=== PATIENT | female | born 1955 | race Caucasian/White ===

== ENCOUNTER 2020-06-14 06:02 | Day surgery (SDC) | payer OTHER ==
[2020-06-12 10:42] VITALS: BMI 41.1
[2020-06-14] MEDS ORDERED: MIDAZOLAM 2 MG/2 ML VIAL IV PRN (06:06)
[2020-06-14] MEDS ORDERED: SCOPOLAMINE 1.5MG/72HR PATCH TRANSDERM ONE (06:06)
[2020-06-14] MEDS ORDERED: LACTATED RINGERS 1,000 ML IV SCH (06:06)
[2020-06-14] MEDS ORDERED: DEXAMETHASONE SOD PHOSPHATE 4 MG/ML 1 ML VIAL IV ONE (06:06)
[2020-06-14] MEDS ORDERED: ONDANSETRON 4 MG/2 ML VIAL IVP ONE (06:06)
[2020-06-14] MEDS ORDERED: LIDOCAINE 1% (10MG/ML) FOR IV START INTRADERMA ONE (06:44)
[2020-06-14] MEDS ORDERED: MIDAZOLAM 2 MG/2 ML VIAL IV ONE (07:01)
[2020-06-14] MEDS ORDERED: fentaNYL (PF) 50 MCG/ML 2 ML AMP IV ONE (07:01)
[2020-06-14] MEDS ORDERED: SUCCINYLCHOLINE CHLORIDE 100 MG/5 ML SYR IV ONE (07:25)
[2020-06-14] MEDS ORDERED: LIDOCAINE 1% INJ 10MG/ML (20 ML MDV) ONE (07:25)
[2020-06-14] MEDS ORDERED: PROPOFOL 10 MG/ML 20 ML VIAL IV ONE (07:25)
[2020-06-14] MEDS ORDERED: PHENYLEPHRINE-0.9% NACL SYG 1,000 MCG/10 ML SYRINGE ONE (07:25)
[2020-06-14] MEDS ORDERED: fentaNYL (PF) 50 MCG/ML 2 ML AMP ONE (07:25)
[2020-06-14] MEDS ORDERED: ROPIVACAINE 5 MG/ML 30 ML VIAL ONE (07:25)
[2020-06-14] MEDS ORDERED: DEXAMETHASONE SOD PHOSPHATE 4 MG/ML 1 ML VIAL ONE (07:25)
[2020-06-14] MEDS ORDERED: ceFAZolin 1,000 MG in SODIUM CHLORIDE 0.9% 1,000 ML IRRIGATION ONE (07:50)
--- NOTE | 2020-06-14 08:06 | P.ANPRN ---
Procedure Note - Anesthesia - Nerve Block Performed Left Popliteal Single Time Out Performed: Yes Date of Procedure: 06/14/20 Procedure Start Time: 07:01 Procedure Stop Time: 07:10 Location of Patient: PreOp Indication: Requested by Surgeon Specifically requested for management of pain by DrBhanu: Tio Gustafson Sedation Type: Sedate with meaningful contact maintained Preparation: Sterile Prep Position: Right Lateral Needle Types: Pajunk Needle Gauge: 21 Ultrasound used to visualize needle placement: Yes Ultrasound used to observe medication spread: Yes Injectate: 0.5% Ropivacaine (see comment for volume) (20 ml plus DExamethasone 4 mg) Blood Aspirated: No Pain Paresthesia on Injection Noted: No Resistance on Injection: Normal Image Stored and Saved: Yes Events: Uneventful and Well Tolerated
--- NOTE | 2020-06-14 08:07 | P.ANPRN ---
Procedure Note - Anesthesia - Nerve Block Performed Left Adductor Canal Single Time Out Performed: Yes Date of Procedure: 06/14/20 Procedure Start Time: :11 Procedure Stop Time: :23 Location of Patient: PreOp Indication: Acute Post-Operative Pain, Requested by Surgeon Specifically requested for management of pain by DrBhanu: Tio Gustafson Sedation Type: Sedate with meaningful contact maintained Preparation: Sterile Prep Position: Supine Needle Types: Pajunk Needle Gauge: 21 Ultrasound used to visualize needle placement: Yes Ultrasound used to observe medication spread: Yes Injectate: 0.5% Ropivacaine (see comment for volume) (20 ml plus Dexamethasone 4 mg) Blood Aspirated: No Pain Paresthesia on Injection Noted: No Resistance on Injection: Normal Image Stored and Saved: Yes Events: Uneventful and Well Tolerated
[2020-06-14] MEDS ORDERED: LACTATED RINGERS 1,000 ML IV ONE (08:47)
[2020-06-14 09:12] VITALS: TEMP 97.4
[2020-06-14] MEDS: HYDROmorphone 0.5 MG/0.5 ML SYRINGE IVP PRN ×3 (09:27→09:39)
[2020-06-14 09:34] VITALS: RESP 16
--- NOTE | 2020-06-14 09:35 | P.OP ---
Date of Procedure: 06/14/20 Preoperative Diagnosis: 1. Left ankle instability 2. Ruptured peroneus brevis tendon left ankle Postoperative Diagnosis: 1. Same 2. Same Procedure(s) Performed: 1. Secondary repair of left lateral ankle ligaments 2. Open repair flexor tendon left ankle ( peroneus brevis) Implants: 1 Arthrex internal brace, 2 Arthrex fiber Anthony anchors Anesthesia: GETA Surgeon: iTo Gustafson Estimated Blood Loss (ml): 2 Pathology: none sent Condition: stable Disposition: PACU Operative Findings: Split longitudinal tear with fraying of the peroneus brevis tendon Description of Procedure: Prior to the patient being brought to the operating room anesthesia administered a popliteal and saphenous nerve block, under ultrasonic guidance and mild sedation. The patient was then brought into the operating room and placed on table supine position. Timeout was taken to confirm correct patient identifiers correct site of surgery and correct procedure. When everybody in the room was in agreement the patient was placed under general anesthetic. A well-padded tourniquet was placed on the left midcalf area and a wedge placed underneath the left hip to internally rotate the left leg. The left leg was then prepped and draped in usual manner. The leg was exsanguinated and the tourniquet inflated to 250 mmHg. Attention directed over the lateral ankle where a incision was made along the lateral malleolus and curved anteriorly as it went into the hindfoot. It was deepened down to the subcutaneous tissue careful to identify, avoid, and retract any neurovascular structures and cauterize any bleeding vessels. Subcutaneous dissection was continued posteriorly and anteriorly to expose the 2 surgical sites. Attention was first directed to the peroneal tendons where instrumentation was used to make a hole in the peroneal tendon sheath and then blunt retraction was placed deep to the fascia so that it could be incised while protecting underlying tendons. The peroneal tendon sheath was opened until all pathologic tendon was visualized. The peroneus brevis was delivered into the surgical field and visually inspected. There is a split longitudinal tear with fraying of the tendon. There is also an enlargement distally in the hindfoot area where likely tear occurred with mild retraction. All abnormal and pathologic tendon tissue was sharply removed until it was debulked and there was normal tendon tissue available. Then utilizing 2-0 nonabsorbable suture, the tendon was re-tubularized keeping as much suture buried between the ends of the tendon as possible. Once the tendon was repaired it was placed back into the fibular groove along with the Proteus longus. The ankle was taken through range of motion and the tendons both glided through the area smoothly. The wound is irrigated with antibiotic saline. The peroneal tendon sheath and fascia was repaired with 2-0 nonabsorbable suture. Then attention was directed over the anterior aspect of the surgical site were in incision was made through the capsular and ligamentous structures on the anterior lateral ankle off the anterior surface of the lateral malleolus. The soft tissues reflected posteriorly and anteriorly to expose the anterior surface of the lateral malleolus where a Campus Chaplain was used to remove the cortical bone which would facilitate ligament re-adhesion upon healing. Then the area distal to the articular surface of the talus on the lateral aspect was palpated to the capsule while holding the ankle at 90. Once the correct area the body of the talus was identified a small stab incision was made to the capsule and then the drill hole for the 4.75 swivel lock anchor was made and tapped. The swivel lock anchor was inserted and advanced to proper depth. The meatman was removed and the suture set aside. The same drill was used to create the drill hole for the second anchor of the internal brace in the lateral malleolus. Then the steamboat pilot holes for the fiber Bobby anchors were made one inferior one superior to the drill hole the lateral malleolus. Anchors were inserted and impacted to proper depth the inserters were removed and then tension placed on the sutures to lock the knot in the bone in place. The wound is irrigated with antibiotic saline. Then utilizing the suture on the fiber Bobby anchors distal capsular ligamentous structures were captured in the suture and then while holding the ankle maximally dorsiflexed and everted the sutures are tied to bring the soft tissue back to the anterior surface the lateral malleolus once that was completed the suture on the 4.75 swivel lock anchor was fed into the 3.5 mm anchor that was alignment of the drill hole the lateral malleolus and then utilizing proper tensioning techniques the anchor was inserted into the drill hole and advanced to proper depth. A of the suture that remained from the fiber Bobby anchors was then used to sew the soft tissue periosteal flap off the lateral malleolus over the repair site in a pants over vest fashion. That point ankle was checked for stability were anterior drawer and inversion stress are negative. The wound is irrigated with antibiotic saline. Subcu closure was then done with 4-0 Monocryl skin closure done with 40 stratified effects in a running subcuticular manner. Dermabond glue was applied until dry then Steri-Strips and Arthrex jumpstart dressing were placed over the incision. The tourniquet was deflated and all capillary refill return to the digits on the left foot Patient then placed a well-padded well molded posterior mold sugar tong plaster splint. Splint was held in place with ankle 90 until dried. Anesthesia was reversed and the patient taken recovery with vital signs stable
[2020-06-14] MEDS ORDERED: HYDROcodone/APAP 5-325MG 1 EACH TAB ONE (10:37)
[2020-06-14] MEDS ORDERED: HYDROcodone/APAP 5-325MG 1 EACH TAB PO ONE (10:38)
[2020-06-14 10:56] VITALS: BP 111/72; PULSE 92
== END 2020-06-14 11:21 | disposition home or self-care (01) ==
LOC: OR 06:02
PROVIDERS: ATTEND Podiatrist
DX: S86.312A Strain of muscle(s) and tendon(s) of peroneal muscle group at lower leg level, left leg, initial encounter (principal); X50.1XXA Overexertion from prolonged static or awkward postures, initial encounter; M25.372 Other instability, left ankle; I10 Essential (primary) hypertension; K21.9 Gastro-esophageal reflux disease without esophagitis; Z86.16 Personal history of COVID-19; Z85.41 Personal history of malignant neoplasm of cervix uteri; Z97.3 Presence of spectacles and contact lenses; Z98.890 Other specified postprocedural states; Z90.710 Acquired absence of both cervix and uterus; Z79.1 Long term (current) use of non-steroidal anti-inflammatories (NSAID); Z79.899 Other long term (current) drug therapy; Z79.82 Long term (current) use of aspirin
CPT/HCPCS: 64447; 64450; 76942; 27675; 27698; C1713 ×2; J2250; J1100; J0690 ×2; J2405; J2001; J3010; J2795; J2370; J0330; J2704; J1170

== ENCOUNTER 2021-01-08 11:20 | Day surgery (SDC) | payer OTHER ==
[2021-01-06 13:35] VITALS: BMI 41.6
[~2021-01-08 11:20] MED LIST: LACTATED RINGERS 1,000 ML IV SCH; LIDOCAINE 1% (10MG/ML) FOR IV START INTRADERMA PRN; Pre Op ABX Message 1 EACH MISC MISCELLANE ONE
[2021-01-08] MEDS ORDERED: ONDANSETRON 4 MG/2 ML VIAL ONE (12:03)
[2021-01-08] MEDS ORDERED: ONDANSETRON 4 MG/2 ML VIAL IVP ONE (12:09)
[2021-01-08] MEDS ORDERED: DEXAMETHASONE SOD PHOSPHATE 4 MG/ML 1 ML VIAL IV ONE (12:09)
[2021-01-08] MEDS ORDERED: MIDAZOLAM 2 MG/2 ML VIAL IV ONE (12:30)
[2021-01-08] MEDS ORDERED: fentaNYL (PF) 50 MCG/ML 2 ML AMP IV ONE (12:30)
[2021-01-08] MEDS ORDERED: ceFAZolin 3 GM in SODIUM CHLORIDE 0.9% 100 ML IVPB ONE (13:00)
[2021-01-08] MEDS ORDERED: fentaNYL (PF) 50 MCG/ML 2 ML AMP ONE (13:00)
[2021-01-08] MEDS ORDERED: PROPOFOL 10 MG/ML 20 ML VIAL IV ONE (13:00)
[2021-01-08] MEDS ORDERED: SUCCINYLCHOLINE CHLORIDE 100 MG/5 ML SYR IV ONE (13:00)
[2021-01-08] MEDS ORDERED: LIDOCAINE 1% INJ 10MG/ML (20 ML MDV) ONE (13:00)
[2021-01-08] MEDS ORDERED: PHENYLEPHRINE-0.9% NACL SYG 1,000 MCG/10 ML SYRINGE ONE (13:00)
[2021-01-08] MEDS ORDERED: ROPIVACAINE 5 MG/ML 30 ML VIAL ONE (13:00)
[2021-01-08 14:30] VITALS: TEMP 97.1
--- NOTE | 2021-01-08 14:34 | P.ANPRN ---
Procedure Note - Anesthesia - Nerve Block Performed Left Popliteal Single Time Out Performed: Yes ([id number]) Date of Procedure: 01/08/21 Procedure Start Time: 12:30 Procedure Stop Time: 12:35 Location of Patient: PreOp Indication: Acute Post-Operative Pain, Requested by Surgeon Specifically requested for management of pain by DrBhanu: Tio Gustafson Sedation Type: Sedate with meaningful contact maintained Preparation: Sterile Prep Position: Supine Catheter: None Needle Types: Pajunk Needle Gauge: 21 Ultrasound used to visualize needle placement: Yes Ultrasound used to observe medication spread: Yes Injectate: 0.5% Ropivacaine (see comment for volume) (20cc) Blood Aspirated: No Pain Paresthesia on Injection Noted: No Resistance on Injection: Normal Image Stored and Saved: Yes Events: Uneventful and Well Tolerated Left Adductor Canal Single Time Out Performed: Yes ([id number]) Date of Procedure: 01/08/21 Procedure Start Time: 12:36 Procedure Stop Time: 12:41 Location of Patient: PreOp Indication: Acute Post-Operative Pain, Requested by Surgeon Specifically requested for management of pain by DrBhanu: Tio Gustafson Sedation Type: Sedate with meaningful contact maintained Preparation: Sterile Prep Position: Supine Catheter: None Needle Types: Pajunk Needle Gauge: 21 Ultrasound used to visualize needle placement: Yes Ultrasound used to observe medication spread: Yes Injectate: 0.5% Ropivacaine (see comment for volume) (20cc) Blood Aspirated: No Pain Paresthesia on Injection Noted: No Resistance on Injection: Normal Image Stored and Saved: Yes Events: Uneventful and Well Tolerated
[2021-01-08] MEDS ORDERED: HYDROcodone/APAP 5-325MG 1 EACH TAB PO STA (14:46)
[2021-01-08] MEDS ORDERED: IV FLUID CONTINUATION 1,000 ML IV ONE (15:07)
[2021-01-08 15:15] VITALS: PULSE 91; RESP 18
[2021-01-08] MEDS ORDERED: HYDROcodone/APAP 5-325MG 1 EACH TAB PO ONE (15:20)
[2021-01-08 16:04] VITALS: BP 111/72
--- NOTE | 2021-01-09 12:53 | P.OP ---
Date of Procedure: 01/08/21 Preoperative Diagnosis: Rupture of peroneal tendon left ankle Postoperative Diagnosis: Same Procedure(s) Performed: Secondary repair left peroneal tendons x 2 Anesthesia: MAKENNA Surgeon: Tio Gustafson Estimated Blood Loss (ml): 3 Pathology: none sent Condition: stable Disposition: PACU Indications for Procedure: Continued pain following previous repair of tendon. MRI indicated pathology in the peroneal tendons Operative Findings: Partial tear of the peroneus longus with marked thickening. Thinning of peroneus brevis Description of Procedure: Prior to the patient being brought to the OR, anesthesia performed a nerve block on the left leg under ultrasound guidance and with the patient under mild sedation. The patient was then brought into the OR and placed on the table in the supine position. Time out was taken to confirm correct patient identifiers, correct procedure and correct side of surgery. When the staff in the room was in agreement with the timeout, the patient was induced and placed under general anesthesia. A well padded tourniquet was applied to the left calf, staying 3-4in distal to the fibular neck. A bump was placed under the left hip to internally rotate the left leg, and then the left leg was prepped and draped in the usual manner. The leg was exanguinated and the tourniquet inflated to 250mmHg. Attention was directed Attention was directed to the lateral ankle, where the previous incision was used for access. The incision was deepened to the subcutaneous tissue, careful to identify, avoid and retract any neurovascular structures and cauterize any bleeding vessels. Direction was carried down to the peroneal retinaculum. The retinaculum was incised off of the posterior aspect of the fibula to expose the peroneal tendons. On inspection the peroneus longus appeared to have a new interstitial tear with thickening of the tendon body and mild retraction of the fibers where some healing had occurred, thus the thickening of the tendon. The brevis tendon was also thinned in the same area. Sharp debridement of both tendons was performed to remove abnormal tissue. Once completed, it was decided to perform a side to side anastomosis of the tendons due to the diminished amount of tissue in each. A 3-0 fiberwire was used to perform the anastomosis. Once completed, the tendons were placed back into the peroneal groove. The hindfoot and ankle were taken through ROM and the tendons were noted to glide smoothly through the area. The area was thoroughly irrigated. Suture tape was then utilized to repair the retinaculum. The SubQ was closed with 4-0 monocryl. The skin was closed with sta ples. An Arthrex jumpstart dressing was placed over the incision. Then a dry, sterile dressing was applied to the ankle. The tourniquet was released and CFT returned to all digits on the left foot. The patient was then placed in a well molded. well padded, posterior mold/sugar tong splint. The ankle was held in neutral until the splint was firm. Then anesthesia was reversed. The patient was taken to recovery with vital signs stable.
== END 2021-01-08 16:05 | disposition home or self-care (01) ==
LOC: OR 11:20
PROVIDERS: ATTEND Podiatrist
DX: S86.312A Strain of muscle(s) and tendon(s) of peroneal muscle group at lower leg level, left leg, initial encounter (principal); I10 Essential (primary) hypertension; K21.9 Gastro-esophageal reflux disease without esophagitis
CPT/HCPCS: 28200; 64447; 64999; 76942; J2250; J1100; J0690; J2405; J2001; J3010; J2795; J2370; J0330; J2704

== ENCOUNTER → 2021-03-19 | Outpatient (CLI) | payer OTHER ==
--- NOTE | 2021-03-19 19:55 | CONS ---
CONSULTATION DATE OF SERVICE: 03/19/2021 This 66-year-old lady has been evaluated in Sleep Center for possible obstructive sleep apnea-hypopnea syndrome. HISTORY OF PRESENT ILLNESS/SLEEP-WAKE EVALUATION: Patient's usual sleep schedule is from 11 p.m. to 8 a.m. No problems with falling asleep. No TV in bedroom. She usually sleeps on the back and side positions. She snores loudly and has witnessed episodes of stopped breathing during sleep. She wakes up from sleep 2 times with dry mouth and nocturia. No history of hypnagogic hallucinations, sleep paralysis or cataplexy. [place] Sleepiness Scale is 7. Patient usually does not take any naps. PAST MEDICAL HISTORY: Positive for hypertension, acid reflux, cervical carcinoma. PAST SURGICAL HISTORY: Surgical treatment of cervical carcinoma, cholecystectomy, ankle surgery. MEDICATIONS: 1. Metoprolol 12.5 mg once a day. 2. Omeprazole 20 mg once a day. 3. Multivitamins. SOCIAL HISTORY: Negative for smoking. Alcohol consumption: None at the present time. REVIEW OF SYSTEMS: Loud snoring, multiple awakenings from sleep. No fevers. No double vision. No recent chest pain. No shortness of breath. No abdominal pain. No bleeding episodes. No blood in the urine. No seizure episodes. FAMILY HISTORY: Heart problems, diabetes. PHYSICAL EXAMINATION: GENERAL: Pleasant lady without distress. VITAL SIGNS: BP 132/82, HR 100, RR 18, height 5 feet 5-1/2 inches, weight 266 pounds, body mass index 43.5, temperature 96.6, oxygen saturation room air 95%. HEENT: PERRLA, EOMI, evaluation of oropharynx showed tongue protrudes midline. Extremely low position of soft palate; Mallampati IV. NECK: Supple, no JVD. Thyroid is not palpable. Neck is wide; 16-1/2 inches in circumference. LUNGS: Clear to percussion and to auscultation. Good air exchange. No wheezing or rhonchi. HEART: S1, S2 regular. No murmurs, gallops, or rubs. ABDOMEN: Slightly obese. EXTREMITIES: No clubbing or cyanosis. HEALTH INSURANCE AGENT: Awake, alert, and oriented X3. Cranial nerves 2 to 7 intact. There is no fasciculation or atrophy. noted. No focal deficits observed. IMPRESSION: 1. Loud snoring, witnessed episodes of stopped breathing during sleep, extremely low position of soft palate, Mallampati IV, wide neck, 16-1/2 inches in circumference; obstructive sleep apnea-hypopnea syndrome. 2. Obesity; body mass index 43.5. 3. Hypertension. 4. Acid reflux. 5. History of cervical carcinoma, status post surgical treatment. 6. Status post cholecystectomy. 7. Status post ankle surgery. PLAN: 1. Polysomnography for evaluation of patient's breathing during sleep. 2. CPAP/BiPAP titration if sleep study confirms obstructive sleep apnea-hypopnea syndrome. 3. Preferable position during sleep on the side. 4. No driving if patient feels any sleepiness. 5. I will see patient for follow up visit to explain results of testing and following plan. Thank you very much for referring this patient for consultation. Sincerely, Pierce Stephens MD, PhD, FAASM Diplomat of [place] [employer] Sleep Medicine Board of [place] [employer] Project Manager [employer] of [facility] [place] MMOLVIN / ANSLEY: [id number] /
== END | disposition home or self-care (01) ==
LOC: SLEEP 14:37
PROVIDERS: ATTEND Internal Medicine
DX: G47.33 Obstructive sleep apnea (adult) (pediatric) (principal); E66.9 Obesity, unspecified; Z68.41 Body mass index [BMI] 40.0-44.9, adult; I10 Essential (primary) hypertension; K21.9 Gastro-esophageal reflux disease without esophagitis; Z90.49 Acquired absence of other specified parts of digestive tract; Z98.890 Other specified postprocedural states; Z85.89 Personal history of malignant neoplasm of other organs and systems
CPT/HCPCS: 99211

== ENCOUNTER → 2022-07-02 | Outpatient (CLI) | payer MEDICARE ==
--- NOTE | 2022-07-02 14:23 | P.PN ---
Subjective DATE: 07/02/2022 FOLLOW UP VISIT. Patient with obstructive sleep apnea hypopnea syndrome return to sleep center for follow-up visit. Information from previous visit have been reviewed. Patient is using PAP equipment every night for the whole night, getting PAP supplies in time. The patient does not have significant problems with the mask, PAP unit and humidification. [place] sleepiness scale is 2, which is normal. I checked information from AutoPAP unit. Usage is 100 % for more then 4 hours, average 8.3 hours per night. Leak is 7.44 l/m, which is in acceptable range. Apnea Hypopnea Index is 1.11, which is normal. MEDICATIONS:1. Omeprazole 20 mg once a day 2. Mobic 3. Multivitamins During physical exam: GENERAL: A pleasant patient without any distress. VITAL SIGNS: BP 134/79, HR 84, RR 12, weight 235.2, temperature 98.4, oxygen saturation at room air 96 % . HEENT: PERRLA, EOMI.low position of soft palate, Mallapati 4 . NECK: Supple. No JVD. LUNGS: Clear to percussion and to auscultation. Good air exchange. No wheezing or rhonchi. HEART: S1, S2 regular. ABDOMEN: Soft and nontender.[] EXTREMITIES: No clubbing or cyanosis. CONTACT CENTER ANALYST: Awake, alert, and oriented x3. No focal deficit. Impressions: 1. Obstructive sleep apnea-hypopnea syndrome. Patient demonstrated great compliance with treatment, benefiting from treatment. 2. Obesity, body mass index 35.5, patient lost 4 pounds since previous visit. 3. History of hypertension in the past, normal blood pressure after started to use CPAP equipment. 4. Acid reflux. 5. History of cervical carcinoma status post surgical treatment. 6. Status post ankle surgery. 7. status post cholecystectomy. Plan: 1. Continue using PAP equipment every night for the whole night. 2. To change air filter at least 1-2 times per month. 3. PAP unit should stay lower then position of the head. 4. Advised patient to remove all remaining water from humidifier canister daily and make it dry after each usage. Refill canister with fresh distilled water before each usage. 5. Sleep hygiene with regular time in bed for at least 8 hours. 6. Precautions related to driving. No driving if feel any sleepiness. 7. I will maintain prescription for PAP supplies including mask, tube, filters. 8. Watching and continue losingweight. 9. Follow up visit in 6 months or earlier if patient has any problems. Thank you very much for allowing me to participate in the management of your patient. Pierce Stephens MD, PhD, FAASM. Diplomat of [place] [employer], Sleep Medicine Board by [place] [employer] Catalyst Manufacturing Operator of [facility] [place]
== END ==
LOC: SLEEP 13:40
PROVIDERS: ATTEND Internal Medicine
DX: G47.33 Obstructive sleep apnea (adult) (pediatric) (principal); E66.9 Obesity, unspecified; I10 Essential (primary) hypertension; K21.9 Gastro-esophageal reflux disease without esophagitis; Z68.35 Body mass index [BMI] 35.0-35.9, adult; Z79.1 Long term (current) use of non-steroidal anti-inflammatories (NSAID); Z85.41 Personal history of malignant neoplasm of cervix uteri; Z90.49 Acquired absence of other specified parts of digestive tract; Z98.890 Other specified postprocedural states; Z99.89 Dependence on other enabling machines and devices; Z88.8 Allergy status to other drugs, medicaments and biological substances
CPT/HCPCS: 99212

== ENCOUNTER → 2023-01-07 | Outpatient (CLI) | payer MEDICARE ==
--- NOTE | 2023-01-07 10:57 | P.PN ---
Subjective DATE: 01/07/2023 FOLLOW UP VISIT. Patient with obstructive sleep apnea hypopnea syndrome return to sleep center for follow-up visit. Information from previous visit have been reviewed. Patient is using PAP equipment every night for the whole night, getting PAP supplies in time. The patient does not have significant problems with the mask, PAP unit but has problems with humidification. [place] sleepiness scale is 0. I checked information from PAP unit. PAP unit pressure 5-15, average 12.7 cm H2O. Usage is 100 % for more then 4 hours, average 9 hours per night. Leak is 6 l/m, which is in acceptable range. Apnea Hypopnea Index is 0.9, which is normal. MEDICATIONS:1. Omeprazole 20 mg once a day 2. Multivitamins During physical exam: GENERAL: A pleasant patient without any distress. VITAL SIGNS: BP 135/78, HR 80, RR 16 , weight 241.2, temperature 98.1, oxygen saturation at room air 96 % . HEENT: PERRLA, EOMI.low position of soft palate, Mallapati 4 . NECK: Supple. No JVD. LUNGS: Clear to percussion and to auscultation. Good air exchange. No wheezing or rhonchi. HEART: S1, S2 regular. ABDOMEN: Soft and nontender.[] EXTREMITIES: No clubbing or cyanosis. NET SORTER: Awake, alert, and oriented x3. No focal deficit. I teach patient how to adjust humidity and temperature in the tube. Temperature in the tube is in with a lower range of 60, it was adjusted up to 80. Humidity level was changed from level of 5 to level of 6. Impressions: 1. Obstructive sleep apnea-hypopnea syndrome. Patient demonstrated great compliance with treatment, benefiting from treatment. 2. Obesity. 3. Acid reflux. 4. History of hypertension in the past. 5. History of cervical cancer, status post surgical treatment. 6. Status post ankle surgery. 7. Status post cholecystectomy. Plan: 1. Continue using PAP equipment every night for the whole night. 2. To change air filter at least 1-2 times per month. 3. PAP unit should stay lower then position of the head. 4. Advised patient to remove all remaining water from humidifier canister daily and make it dry after each usage. Refill canister with fresh distilled water before each usage. 5. Sleep hygiene with regular time in bed for at least 8 hours. 6. Precautions related to driving. No driving if feel any sleepiness. 7. I will maintain prescription for PAP supplies including mask, tube, filters. 8. Follow up visit in 6 months or earlier if patient has any problems. 9. Watching and losing weight. Thank you very much for allowing me to participate in the management of your patient. Pierce Stephens MD, PhD, FAASM. Diplomat of [place] [employer], Sleep Medicine Board by [place] [employer] Master Motorcycle Technician of [facility] [place]
== END ==
LOC: 3 N SLEEP 10:20
PROVIDERS: ATTEND Internal Medicine
DX: G47.33 Obstructive sleep apnea (adult) (pediatric) (principal); E66.9 Obesity, unspecified; I10 Essential (primary) hypertension; K21.9 Gastro-esophageal reflux disease without esophagitis; Z79.899 Other long term (current) drug therapy; Z85.41 Personal history of malignant neoplasm of cervix uteri; Z90.49 Acquired absence of other specified parts of digestive tract; Z99.89 Dependence on other enabling machines and devices; Z96.659 Presence of unspecified artificial knee joint; Z88.8 Allergy status to other drugs, medicaments and biological substances
CPT/HCPCS: 99212

== ENCOUNTER → 2023-07-22 | Outpatient (CLI) | payer MEDICARE ==
[2023-07-22 11:38] VITALS: BP 133/80; PULSE 79; RESP 16; TEMP 97.9
--- NOTE | 2023-07-22 11:43 | P.PN ---
Subjective DATE: 07/22/2023 FOLLOW UP VISIT. Patient with obstructive sleep apnea hypopnea syndrome return to sleep center for follow-up visit. Information from previous visit have been reviewed. Patient is using PAP equipment every night for the whole night, getting PAP supplies in time. The patient does not have significant problems with the mask, PAP unit and humidification. [place] sleepiness scale is 0, which is perfect. I checked information from PAP unit. PAP unit pressure 5-15, average 13.9 cm H2O. Usage is 100% for more then 4 hours, average 8.75 hours per night. Leak is 15.9 l/m, which is in acceptable range. Apnea Hypopnea Index is 0.8, which is normal. MEDICATIONS:1. Omeprazole 40 mg once a day 2. Synthroid 45 mcg once a day During physical exam: GENERAL: A pleasant patient without any distress. VITAL SIGNS: Please see below. HEENT: PERRLA, EOMI.low position of soft palate, Mallapati 4 . NECK: Supple. No JVD. LUNGS: Clear to percussion and to auscultation. Good air exchange. No wheezing or rhonchi. HEART: S1, S2 regular. ABDOMEN: Soft and nontender. Obese EXTREMITIES: No clubbing or cyanosis. SCREEN EXAMINER: Awake, alert, and oriented x3. No focal deficit. Impressions: 1. Obstructive sleep apnea-hypopnea syndrome. Patient demonstrated great compliance with treatment, benefiting from treatment. 2. Obesity, BMI 43.0, patient increased weight on 24 pounds comparing with the previous visit. 3. History of hypertension in the past, presently normal blood pressure. 4. Acid reflux. 5. History of cervical cancer, status post surgical treatment. 6. Status post cholecystectomy. 7. Status post ankle surgery. Plan: 1. Continue using PAP equipment every night for the whole night. 2. To change air filter at least 1-2 times per month. 3. PAP unit should stay lower then position of the head. 4. Advised patient to remove all remaining water from humidifier canister daily and make it dry after each usage. Refill canister with fresh distilled water before each usage. 5. Sleep hygiene with regular time in bed for at least 8 hours. 6. Precautions related to driving. No driving if feel any sleepiness. 7. I will maintain prescription for PAP supplies including mask, tube, filters. 8. Watching and losing weight. 9. Follow up visit in 6 months or earlier if patient has any problems. Thank you very much for allowing me to participate in the management of your patient. Pierce Stephens MD, PhD, FAASM. Diplomat of [place] Board [employer] Sleep Medicine, Sleep Medicine Board by [place] [employer] Medicine Laundry Presser of [facility] [place] Objective - Vital Signs Vital signs: Vital Signs Temp 97.9 F 07/22/23 11:26 Pulse 79 07/22/23 11:26 Resp 16 07/22/23 11:26 BP 133/80 07/22/23 11:26 Pulse Ox 95 07/22/23 11:26 FiO2 Intake & Output 07/21/23 07/22/23 07/22/23 18:59 06:59 18:59 Weight 120.202 kg
== END ==
LOC: 3 N SLEEP 10:59
PROVIDERS: ATTEND Internal Medicine
DX: G47.33 Obstructive sleep apnea (adult) (pediatric) (principal); E66.9 Obesity, unspecified; K21.9 Gastro-esophageal reflux disease without esophagitis; I10 Essential (primary) hypertension; Z79.899 Other long term (current) drug therapy; Z85.41 Personal history of malignant neoplasm of cervix uteri; Z90.49 Acquired absence of other specified parts of digestive tract; Z68.41 Body mass index [BMI] 40.0-44.9, adult; Z99.89 Dependence on other enabling machines and devices; Z98.890 Other specified postprocedural states; Z91.09 Other allergy status, other than to drugs and biological substances
CPT/HCPCS: 99212

== ENCOUNTER → 2024-02-24 | Outpatient (CLI) | payer MEDICARE ==
[2024-02-24 11:52] VITALS: BP 135/82; PULSE 106; RESP 20; TEMP 97.6
--- NOTE | 2024-02-24 12:19 | P.PROGSL ---
Subjective DATE: 02/24/2024 FOLLOW UP VISIT. Patient with obstructive sleep apnea hypopnea syndrome return to sleep center for follow-up visit. Information from previous visit have been reviewed. Patient is using PAP equipment every night for the whole night, getting PAP supplies in time. The patient does not have significant problems with the mask, PAP unit and humidification. [place] sleepiness scale is 0, which is perfect. I checked information from PAP unit. PAP unit pressure 5-15, average 13.0 cm H2O. Usage is 100% for more then 4 hours, average 8.75 hours per night. Leak is 14.2 l/m, which is in acceptable range. Apnea Hypopnea Index is perfect 0.7. MEDICATIONS have been reviewed, please see below. During physical exam: GENERAL: A pleasant patient without any distress. VITAL SIGNS: Please see below, weight is 266.8 lbs. HEENT: PERRLA, EOMI.low position of soft palate, Mallapati 4 . NECK: Supple. No JVD. LUNGS: Clear to percussion and to auscultation. Good air exchange. No wheezing or rhonchi. HEART: S1, S2 regular. ABDOMEN: Soft and nontender.[] EXTREMITIES: No clubbing or cyanosis. REGULATORY SCIENTIST: Awake, alert, and oriented x3. No focal deficit. Impressions: 1. Obstructive sleep apnea-hypopnea syndrome. Patient demonstrated great compliance with treatment, benefiting from treatment. 2. Obesity, BMI 43.3. 3. History of hypertension. 4. History of cervical cancer, status post surgical treatment. 5. Acid reflux. 6. Status post cholecystectomy. 7. Status post ankle surgery. Plan: 1. Continue using PAP equipment every night for the whole night. 2. Sleep hygiene with regular time in bed for at least 7.5-8 hours 3. PAP unit should stay lower then position of the head. 4. Advised patient to remove all remaining water from humidifier canister daily and make it dry after each usage. Refill canister with fresh distilled water before each usage. 5. Watching and losing weight. 6. Precautions related to driving. No driving if feel any sleepiness. 7. I will maintain prescription for PAP supplies including mask, tube, filters. 8. Follow up visit in 8 months or earlier if patient has any problems. Thank you very much for allowing me to participate in the management of your patient. Pierce Stephens MD, PhD, FAASM. Diplomat of [place] [employer], Sleep Medicine Board by [place] [employer] [facility] [place] Objective - Vital Signs Vital Signs: Vital Signs Temp 97.6 F 02/24/24 11:49 Pulse 106 H 02/24/24 11:49 Resp 20 02/24/24 11:49 BP 135/82 02/24/24 11:49 Pulse Ox 97 02/24/24 11:49 FiO2 Intake & Output 02/23/24 02/24/24 02/24/24 18:59 06:59 18:59 Weight 120.882 kg Home Medications: Home Medications Medication Instructions Recorded Confirmed Type Aspirin [Adult Low Dose Aspirin EC] 81 mg PO DAILY 06/12/20 01/06/21 History Metoprolol Tartrate [Lopressor] 12.5 mg PO QAM 06/12/20 01/08/21 History Multivitamins, Thera [Multivitamin 1 tab PO DAILY 06/12/20 02/24/24 History (formulary)] Omeprazole [PriLOSEC] 20 mg PO [id number] 06/12/20 02/24/24 History Levothyroxine Sodium [Synthroid] 45 mcg PO DAILY 07/22/23 07/22/23 History
== END ==
LOC: 3 N SLEEP 11:31
PROVIDERS: ATTEND Internal Medicine
DX: G47.33 Obstructive sleep apnea (adult) (pediatric) (principal); K21.9 Gastro-esophageal reflux disease without esophagitis; E66.9 Obesity, unspecified; I10 Essential (primary) hypertension; Z98.890 Other specified postprocedural states; Z90.49 Acquired absence of other specified parts of digestive tract; Z99.89 Dependence on other enabling machines and devices; Z85.41 Personal history of malignant neoplasm of cervix uteri; Z68.41 Body mass index [BMI] 40.0-44.9, adult; Z88.8 Allergy status to other drugs, medicaments and biological substances; Z79.899 Other long term (current) drug therapy
CPT/HCPCS: 99212